=== PATIENT | male | born 1940 | race Asian ===

== ENCOUNTER 2019-06-06 17:07 | Inpatient (IN) | payer MEDICARE, MEDICAID ==
[2019-06-06 23:10] VITALS: BP 147/80
[2019-06-07] MEDS ORDERED: GLUCAGON HCl 1 MG KIT IM PRN ×3 (00:02→07:52)
[2019-06-07] MEDS ORDERED: Lactulose 10 Gm/15 mL 30mL UDC PO PRN (00:28)
[2019-06-07] MEDS ORDERED: Fleet Enema 135 mL RC PRN (00:34)
[2019-06-07] MEDS ORDERED: Hydrocodone/APAP 5mg/325mg Tab PO PRN (00:35)
[2019-06-07] MEDS ORDERED: Magnesium Hydroxide (MOM) 30 mL UDC PO PRN (00:37)
[2019-06-07] MEDS ORDERED: INSULIN LISPRO SLIDING SCALE 100 UNITS/ML UNIT SUBQ SCH ×2 (06:00→11:30)
--- NOTE | 2019-06-07 07:48 | History and Physical ---
History of Present Illness - HPI Chief Complaint: psychosis HPI: 79 y/o male transferred to [facility] from [facility] for acute psychosis. Patient has a previous medical history of dementia, Major depressive disorder, Hypertension, Hyperlipidemia, Diabetes Mellitus type 2, Anemia of chronic disease, and CVA. Patient was noted to have increased agitation and striking out and combative behavior at the SNF. Patient was transferred to [facility] ER for evaluation. While in the ER patient was evaluated by ER physician. Initial Labwork done in the ER revealed the following. WBC 9.9 H/H 10.9/32.5 Plat 177K Na 139 K 4.9 Bun/Cr 47/1.48 glu 237 UA Bacteria few Leuko neg Nitrite neg Patient was subsequently transferred to [facility] for further evaluation and treatment. Vital Signs: Last Vital Signs Temp 97.9 F 06/07/19 05:35 Pulse 85 06/07/19 05:35 Resp 20 06/07/19 05:35 BP 146/70 06/07/19 05:35 Pulse Ox 97 06/07/19 05:35 Past Medical History Cardiovascular: Report: HTN, Hyperlipidemia Pulmonary: Report: No Pertinent Hx [employer]: Report: CVA, Dementia GI: Report: No Pertinent Hx Psych: Report: Anxiety, Depression, Psychosis Musculoskeletal: Report: No Pertinent Hx Rheumatologic: Report: No pertinent Hx Infectious Disease: Report: No Pertinent Hx Renal/: Report: No Pertinent Hx Endocrine: Report: Diabetes Dermatology: Report: No Pertinent Hx - Past Surgical History Past Surgical History: No pertinent Hx Social History Smoke: No Alcohol: None Drugs: None [facility] - Allergies Allergies/Adverse Reactions: Allergies Allergy/AdvReac Type Severity Reaction Status Date / Time No Known Allergies Allergy Verified 06/06/19 23:09 Review of Systems - Review of Systems Constitutional: Report: No Significant Eyes: Report: No Significant ENT: Report: No Significant Respiratory: Report: No Significant Cardiovascular: Report: No Significant Gastrointestinal: Report: No Significant Genitourinary: Report: No Significant Musculoskeletal: Report: No Significant Skin: Report: No Significant Neurological: Report: No Significant Physical Exam - Physical Exam HEENT: Report: Ears Nose Throat within normal limits, Pharnyx within normal limits Neck: Report: Within normal limits Cardiovascular Systems: Report: +s1/s2 noted, Regular, Rate and Rhythm Respiratory: Report: Breath Sounds are within normal limits Abdomen: Report: Non-tender to palpation Back: Report: Inspection of back is within normal limits. Extremities: Report: Non-tender to palpation. Skin: Report: Color of skin is within normal limits Neuro/Psych: Report: No sensory deficit - Assessment Assessment: Psychosis dementia Major depressive disorder Hypertension Hyperlipidemia Diabetes Mellitus type 2 Anemia of chronic disease CVA - Plan Plan: admit to [facility] for further evaluation and treatment continue home meds.
[2019-06-07] MEDS ORDERED: Atorvastatin Calcium 10 MG TAB PO SCH (09:00)
[2019-06-07] MEDS: Multivitamin Tab PO SCH (09:32)
[2019-06-07] MEDS: Aspirin 81mg Chewable Tab PO SCH (09:32)
[2019-06-07] MEDS: INSULIN LISPRO SLIDING SCALE 100 UNITS/ML UNIT SUBQ SCH ×3 (12:41→20:10)
--- NOTE | 2019-06-07 22:52 | Psychiatric Evaluation ---
DATE OF SERVICE: 06/07/2019 PSYCHIATRIC INITIAL EVALUAITON AGE: 79. SEX: Male. PHYSICIAN: Dr. Gunter. CHIEF COMPLAINT: Agitation and confusion. HISTORY OF PRESENT ILLNESS: The patient is a 79-year-old male who lives in [facility]. The patient was transferred from [facility] because of increased confusion as well as increased aggressive behavior and agitation. The patient also has been combative, especially when staff trying to help with ADLs. Also, has not been able to follow any of staff's directions. On the unit, the patient also has not been able to follow directions and has been easily irritable and easily agitated. Language barrier also might adding to the problems. The patient has history of CVA and history of diabetes mellitus type 2 as well as hypertension and hyperlipidemia. PAST PSYCHIATRIC HISTORY: The patient has history of what seems to be dementia. PAST MEDICAL HISTORY: As mentioned above. SOCIAL HISTORY: The patient lives in [facility]. No known alcohol or drug use. ALLERGIES: No known allergies. MENTAL STATUS EXAMINATION: The patient appears older than stated age. Covering her face during my interview and when I tried to talk him, the patient kept trying to cover his face and he was becoming more angry and irritable easily. The patient because of language and no staff available to translate, I was not able to get answers to questions regarding hallucinations or delusions, but from the chart the patient seems to be hallucinating and seems to be paranoid. Also, no reports of suicide or homicide. The patient is alert, but unable to assess orientation or memory or concentration or intelligence at this time because of language barrier and also because of the patient's paranoia. ASSESSMENT: PRIMARY DIAGNOSIS: Unspecified psychosis. SECONDARY DIAGNOSIS: Dementia, moderate to severe, with psychotic features. TREATMENT PLAN: We will continue to monitor the patient's behavior and condition closely. We will also try to get more information regarding the patient's condition and medications. Also, we will work on his poor impulse control and also on his monitor blood levels of Tegretol and Depakote. ESTIMATED LENGTH OF STAY: 5-7 days. PATIENT'S STRENGTHS AND WEAKNESSES: The patient has support from [facility] and they would like to get the patient back. Weaknesses is his poor impulse control. AFTER DISCHARGE PLAN: Outpatient treatment and followup will continue as an outpatient in [facility]. [facility]# [id number]
[2019-06-08] MEDS: INSULIN LISPRO SLIDING SCALE 100 UNITS/ML UNIT SUBQ SCH ×4 (06:41→22:06)
--- NOTE | 2019-06-08 07:10 | Progress Notes ---
DATE: 06/08/2019 SUBJECTIVE: Chart reviewed and tried to interview the patient and was helped from staff with translation. Also reviewed records and labs. The patient is still preoccupied. The patient also is still aggressive at times, especially when male staff tries to help him with his ADLs. The patient also is restless at night and he is still in angry mood. The patient also is having difficulty with his mood and he is easily irritable and easily agitated. Otherwise, the patient is compliant with taking his medications with no side effects of medications. ASSESSMENT: The patient is still agitated and is still in irritable mood. TREATMENT PLAN: We will continue to monitor his behavior and his condition closely. Also, we will increase Seroquel to 150 mg at bedtime and 25 mg in the morning. Also, continue to work on his irritability and his poor impulse control and continue to follow up. [facility]# [id number]
--- NOTE | 2019-06-08 08:17 | General Progress Note ---
Subjective - Review of Systems Service Date: 06/08/19 Subjective: Awake,alert, afebrile VS T 98.6 P 101 R 19 BP 160/75 Objective - Physical Exam Vitals and I&O: Vital Signs Temp 98.6 F 06/08/19 06:53 Pulse 101 06/08/19 06:53 Resp 19 06/08/19 06:53 BP 160/75 06/08/19 06:53 Pulse Ox 98 06/08/19 06:53 Intake & Output 06/07/19 06/08/19 06/08/19 18:59 06:59 18:59 Intake Total 240 Balance 240 Intake: Oral 240 Other: # Voids 2 # Bowel Movements 0 Active Medications: Current Medications Acetaminophen/Hydrocodone Bitart ([place] 5mg/325mg) 1 tab PO Q6H PRN PRN Reason: moderate pain (Scale 4-7) Stop: 08/06/19 00:34 Amlodipine Besylate (Norvasc) 10 mg PO DAILY [facility] Stop: 08/06/19 08:59 Last Admin: 06/07/19 09:32 Dose: 10 mg Aspirin (Aspirin Chewable) 81 mg PO DAILY [facility] Stop: 08/06/19 08:59 Last Admin: 06/07/19 09:32 Dose: 81 mg Atorvastatin Calcium (Lipitor) 40 mg PO DAILY [facility]; Protocol Stop: 08/06/19 08:59 Bisacodyl (Dulcolax 5 Mg Ec Tab) 5 mg PO PRN PRN PRN Reason: constipation Stop: 08/06/19 00:17 Calcium Carbonate (Tums) 500 mg PO TID [facility] Stop: 08/06/19 08:59 Last Admin: 06/07/19 22:15 Dose: 500 mg Dextrose (Glutose 40%) 18.75 gm PO PRN PRN PRN Reason: BS Below 70 if tolerate po Stop: 08/06/19 07:51 Docusate Sodium (Colace) 250 mg PO DAILY [facility] Stop: 08/06/19 08:59 Last Admin: 06/07/19 09:31 Dose: 250 mg Glucagon (Glucagen) 1 mg IM PRN PRN PRN Reason: BS Below 70 if not tolerate po Stop: 08/06/19 07:51 Insulin Human Lispro (Humalog Insulin Sliding Scale) 0 units SUBQ ACHS [facility]; Protocol Stop: 08/06/19 11:29 Last Admin: 06/08/19 06:41 Dose: Not Given Lactulose (Cephulac) 10 gm PO BID PRN PRN Reason: constipation Stop: 08/06/19 08:59 Lorazepam (Ativan) 0.5 mg PO Q4HR PRN; Protocol PRN Reason: Anxiety Stop: 07/06/19 23:10 Last Admin: 06/08/19 01:21 Dose: 0.5 mg Magnesium Hydroxide (Milk Of Magnesia) 30 ml PO HS PRN PRN Reason: Constipation Stop: 08/06/19 00:36 Multivitamins/Vitamin C (Theragran) 1 tab PO DAILY [facility] Stop: 08/06/19 08:59 Last Admin: 06/07/19 09:32 Dose: 1 tab Psyllium Hydrophilic Mucilloid (Metamucil) 1 pkt PO DAILY [facility] Stop: 08/06/19 08:59 Last Admin: 06/07/19 09:32 Dose: 1 pkt Quetiapine Fumarate (Seroquel) 150 mg PO HS [facility]; Protocol Stop: 08/07/19 20:59 Quetiapine Fumarate (Seroquel) 25 mg PO DAILY [facility]; Protocol Stop: 08/07/19 08:59 Sodium Phosphate (Fleet Enema) 135 ml RC PRN PRN PRN Reason: Constipation Stop: 08/06/19 00:33 Venlafaxine HCl (Effexor Xr) 75 mg PO DAILY [facility]; Protocol Stop: 08/06/19 08:59 Last Admin: 06/07/19 09:33 Dose: 75 mg Zolpidem Tartrate (Ambien) 5 mg PO HS PRN PRN Reason: Insomnia Stop: 08/06/19 01:05 Last Admin: 06/07/19 22:17 Dose: 5 mg General: Alert, No acute distress HEENT: Atraumatic, PERRLA, EOMI Neck: Supple, JVD Cardiovascular: Regular rate Lungs: Clear to auscultation Abdomen: Bowel sounds Extremities: no Clubbing, no Cyanosis, no Edema Neurological: Normal gait Skin: no Rash Assessment/Plan - Assessment Assessment: Psychosis dementia Major depressive disorder Hypertension elevated Hyperlipidemia Diabetes Mellitus type 2 Anemia of chronic disease CVA - Plan Plan: add clonidine 0.1mg PO TID PRN SBP above 160 will continue current treatment.
[2019-06-08] MEDS: Multivitamin Tab PO SCH (09:09)
[2019-06-08] MEDS: Aspirin 81mg Chewable Tab PO SCH (09:10)
[2019-06-08] MEDS ORDERED: Haloperidol Lactate 5 mg/mL 1mL Vial IM ONE (12:53)
[2019-06-08] MEDS ORDERED: Haloperidol Lactate 5 mg/mL 1mL Vial ONE (12:58)
[2019-06-09] MEDS: INSULIN LISPRO SLIDING SCALE 100 UNITS/ML UNIT SUBQ SCH ×4 (06:46→22:00)
--- NOTE | 2019-06-09 07:16 | Progress Notes ---
DATE: 06/09/2019 SUBJECTIVE: Chart was reviewed and the patient interviewed. Also discussed the patient's condition with the staff and reviewed records and labs. The patient is still extremely agitated and in angry and in irritable mood. The patient also is restless and still has difficulty with his mood and is aggressive with the staff, especially while helping him with his ADLs. The patient also still has difficulty expressing himself and his feelings basically because of language barrier, but at the same time, he is unable to follow any of staff directions. The patient started on Seroquel 25 mg in the morning and 150 mg at bedtime, but seems that has not been helping to control his impulse. ASSESSMENT: The patient is still agitated and in irritable mood and is still confused. TREATMENT PLAN: Continue to monitor behavior and condition closely. Also, continue working on his irritability. Also, we will decrease Effexor to 50 mg every day and we will increase Seroquel to 25 mg twice a day and 150 mg at bedtime and we will continue to follow up. JOB# [id number]
--- NOTE | 2019-06-09 07:39 | General Progress Note ---
Subjective - Review of Systems Service Date: 06/09/19 Subjective: Awake,alert, afebrile. Less agitated this morning VS T 97.3 P 96 R 20 BP 148/81 Objective - Physical Exam Vitals and I&O: Vital Signs Temp 97.3 F 06/09/19 05:39 Pulse 96 06/09/19 05:39 Resp 20 06/09/19 05:39 BP 148/81 06/09/19 05:39 Pulse Ox 97 06/09/19 05:39 Intake & Output 06/08/19 06/09/19 06/09/19 18:59 06:59 18:59 Intake Total 600 240 Balance 600 240 Intake: Oral 600 240 Other: # Voids 3 2 # Bowel Movements 0 1 Active Medications: Current Medications Acetaminophen/Hydrocodone Bitart ([place] 5mg/325mg) 1 tab PO Q6H PRN PRN Reason: moderate pain (Scale 4-7) Stop: 08/06/19 00:34 Amlodipine Besylate (Norvasc) 10 mg PO DAILY [facility] Stop: 08/06/19 08:59 Last Admin: 06/08/19 09:10 Dose: 10 mg Aspirin (Aspirin Chewable) 81 mg PO DAILY [facility] Stop: 08/06/19 08:59 Last Admin: 06/08/19 09:10 Dose: 81 mg Atorvastatin Calcium (Lipitor) 40 mg PO DAILY [facility]; Protocol Stop: 08/06/19 08:59 Last Admin: 06/08/19 09:09 Dose: 40 mg Bisacodyl (Dulcolax 5 Mg Ec Tab) 5 mg PO PRN PRN PRN Reason: constipation Stop: 08/06/19 00:17 Calcium Carbonate (Tums) 500 mg PO TID [facility] Stop: 08/06/19 08:59 Last Admin: 06/08/19 22:08 Dose: 500 mg Dextrose (Glutose 40%) 18.75 gm PO PRN PRN PRN Reason: BS Below 70 if tolerate po Stop: 08/06/19 07:51 Docusate Sodium (Colace) 250 mg PO DAILY [facility] Stop: 08/06/19 08:59 Last Admin: 06/08/19 09:09 Dose: 250 mg Glucagon (Glucagen) 1 mg IM PRN PRN PRN Reason: BS Below 70 if not tolerate po Stop: 08/06/19 07:51 Insulin Human Lispro (Humalog Insulin Sliding Scale) 0 units SUBQ ACHS [facility]; Protocol Stop: 08/06/19 11:29 Last Admin: 06/09/19 06:46 Dose: 2 units Lactulose (Cephulac) 10 gm PO BID PRN PRN Reason: constipation Stop: 08/06/19 08:59 Lorazepam (Ativan) 0.5 mg PO Q4HR PRN; Protocol PRN Reason: Anxiety Stop: 07/06/19 23:10 Last Admin: 06/08/19 01:21 Dose: 0.5 mg Magnesium Hydroxide (Milk Of Magnesia) 30 ml PO HS PRN PRN Reason: Constipation Stop: 08/06/19 00:36 Multivitamins/Vitamin C (Theragran) 1 tab PO DAILY [facility] Stop: 08/06/19 08:59 Last Admin: 06/08/19 09:09 Dose: 1 tab Psyllium Hydrophilic Mucilloid (Metamucil) 1 pkt PO DAILY [facility] Stop: 08/06/19 08:59 Last Admin: 06/08/19 09:08 Dose: 1 pkt Quetiapine Fumarate 100 mg/ (Quetiapine Fumarate 50 mg) 150 mg PO HS [facility] Stop: 08/07/19 20:59 Last Admin: 06/08/19 22:08 Dose: 150 mg Quetiapine Fumarate (Seroquel) 25 mg PO BID [facility]; Protocol Stop: 08/08/19 08:59 Sodium Phosphate (Fleet Enema) 135 ml RC PRN PRN PRN Reason: Constipation Stop: 08/06/19 00:33 Venlafaxine HCl (Effexor Xr) 50 mg PO DAILY [facility]; Protocol Stop: 08/08/19 08:59 Zolpidem Tartrate (Ambien) 5 mg PO HS PRN PRN Reason: Insomnia Stop: 08/06/19 01:05 Last Admin: 06/07/19 22:17 Dose: 5 mg General: Alert, No acute distress HEENT: Atraumatic, PERRLA, EOMI Neck: Supple, JVD Cardiovascular: Regular rate Lungs: Clear to auscultation Abdomen: Bowel sounds Extremities: no Clubbing, no Cyanosis, no Edema Neurological: Normal gait Skin: no Rash Assessment/Plan - Assessment Assessment: Psychosis dementia Major depressive disorder Hypertension elevated Hyperlipidemia Diabetes Mellitus type 2 Anemia of chronic disease CVA - Plan Plan: add clonidine 0.1mg PO TID PRN SBP above 160 will continue current treatment.
[2019-06-09] MEDS: Aspirin 81mg Chewable Tab PO SCH (08:53)
[2019-06-09] MEDS: Multivitamin Tab PO SCH (08:53)
[2019-06-10] MEDS: INSULIN LISPRO SLIDING SCALE 100 UNITS/ML UNIT SUBQ SCH ×4 (07:01→20:58)
--- NOTE | 2019-06-10 07:30 | General Progress Note ---
Subjective - Review of Systems Service Date: 06/10/19 Subjective: Awake,alert, afebrile. Less agitated this morning VS T 98.3 P 103 R 20 BP 105/58 Objective - Physical Exam Vitals and I&O: Vital Signs Temp 98.3 F 06/10/19 06:57 Pulse 103 06/10/19 06:57 Resp 20 06/10/19 06:57 BP 105/58 06/10/19 06:57 Pulse Ox 96 06/10/19 06:57 Intake & Output 06/09/19 06/10/19 06/10/19 18:59 06:59 18:59 Intake Total 1200 240 Balance 1200 240 Intake: Oral 1200 240 Other: # Voids 2 # Bowel Movements 1 0 Active Medications: Current Medications Acetaminophen/Hydrocodone Bitart ([place] 5mg/325mg) 1 tab PO Q6H PRN PRN Reason: moderate pain (Scale 4-7) Stop: 08/06/19 00:34 Amlodipine Besylate (Norvasc) 10 mg PO DAILY [facility] Stop: 08/06/19 08:59 Last Admin: 06/09/19 08:54 Dose: 10 mg Aspirin (Aspirin Chewable) 81 mg PO DAILY [facility] Stop: 08/06/19 08:59 Last Admin: 06/09/19 08:53 Dose: 81 mg Atorvastatin Calcium (Lipitor) 40 mg PO DAILY [facility]; Protocol Stop: 08/06/19 08:59 Last Admin: 06/09/19 08:54 Dose: 40 mg Bisacodyl (Dulcolax 5 Mg Ec Tab) 5 mg PO PRN PRN PRN Reason: constipation Stop: 08/06/19 00:17 Calcium Carbonate (Tums) 500 mg PO TID [facility] Stop: 08/06/19 08:59 Last Admin: 06/09/19 22:00 Dose: 500 mg Dextrose (Glutose 40%) 18.75 gm PO PRN PRN PRN Reason: BS Below 70 if tolerate po Stop: 08/06/19 07:51 Docusate Sodium (Colace) 250 mg PO DAILY [facility] Stop: 08/06/19 08:59 Last Admin: 06/09/19 08:55 Dose: 250 mg Glucagon (Glucagen) 1 mg IM PRN PRN PRN Reason: BS Below 70 if not tolerate po Stop: 08/06/19 07:51 Insulin Human Lispro (Humalog Insulin Sliding Scale) 0 units SUBQ ACHS [facility]; Protocol Stop: 08/06/19 11:29 Last Admin: 06/10/19 07:01 Dose: 4 units Lactulose (Cephulac) 10 gm PO BID PRN PRN Reason: constipation Stop: 08/06/19 08:59 Lorazepam (Ativan) 0.5 mg PO Q4HR PRN; Protocol PRN Reason: Anxiety Stop: 07/06/19 23:10 Last Admin: 06/09/19 16:18 Dose: 0.5 mg Magnesium Hydroxide (Milk Of Magnesia) 30 ml PO HS PRN PRN Reason: Constipation Stop: 08/06/19 00:36 Multivitamins/Vitamin C (Theragran) 1 tab PO DAILY [facility] Stop: 08/06/19 08:59 Last Admin: 06/09/19 08:53 Dose: 1 tab Psyllium Hydrophilic Mucilloid (Metamucil) 1 pkt PO DAILY [facility] Stop: 08/06/19 08:59 Last Admin: 06/09/19 08:53 Dose: 1 pkt Quetiapine Fumarate 100 mg/ (Quetiapine Fumarate 50 mg) 150 mg PO HS [facility] Stop: 08/07/19 20:59 Last Admin: 06/09/19 22:00 Dose: 150 mg Quetiapine Fumarate (Seroquel) 25 mg PO BID [facility]; Protocol Stop: 08/08/19 08:59 Last Admin: 06/09/19 16:18 Dose: 25 mg Sodium Phosphate (Fleet Enema) 135 ml RC PRN PRN PRN Reason: Constipation Stop: 08/06/19 00:33 Venlafaxine HCl (Effexor Xr) 75 mg PO DAILY [facility]; Protocol Stop: 08/09/19 08:59 Zolpidem Tartrate (Ambien) 5 mg PO HS PRN PRN Reason: Insomnia Stop: 08/06/19 01:05 Last Admin: 06/07/19 22:17 Dose: 5 mg General: Alert, No acute distress HEENT: Atraumatic, PERRLA, EOMI Neck: Supple, JVD Cardiovascular: Regular rate Lungs: Clear to auscultation Abdomen: Bowel sounds Extremities: no Clubbing, no Cyanosis, no Edema Neurological: Normal gait Skin: no Rash Assessment/Plan - Assessment Assessment: Psychosis dementia Major depressive disorder Hypertension improved Hyperlipidemia Diabetes Mellitus type 2 Anemia of chronic disease CVA - Plan Plan: add clonidine 0.1mg PO TID PRN SBP above 160 will continue current treatment. Nutritional Asmnt/Malnutr-PDOC - Dietary Evaluation Malnutrition Findings (Please click <Entered> for more info): Nutritional Asmnt/Malnutrition Start: 06/09/19 14: 45 Text: Status: Active Freq: Protocol: Document 06/09/19 14:45 BRIA (Rec: 06/09/19 14:51 [email or web address] [email or web address]) Nutritional Asmnt/Malnutrition Patient General Information Nutritional Screening Moderate Risk Diagnosis Psychosis Pertinent Medical Hx/Surgical Hx Dementia, Major Depressive Disorder, HTN, Hyperlipidemia, DMT2, Anemia of Chronic Disease, CVA Subjective Information Pt is a 79-year-old male admitted on 06/06 d/t acute psychosis. Pt ate (06/08) 75% breakfast, 25% lunch, 0% dinner. Pt only speaks Cantonese and translation phones are currently unavailable, have been ordered . Nurse Marcelo stated pt does have poor PO intake, food and beverages. Provided a Glucerna at lunch time, pt drank a little of it. Breezy REYES stated pt slept through breakfast as he was given a shot yesterday and he ate about 30% of his lunch today. When I visited pt in late afternoon I went in with the nurse to offer a snack and the pt was combative, kicking and punching, threw pudding on the ground. Will continue to monitor pt PO intake. Adding Glucerna TID to Diet Rx to offer additional kcals and protein. Pt is on INS-SS, pt has noted refusal of Insulin regimen 06/08 x3. Anthropometrics HT: 52 WT: 122 LB (55.45 kg) BMI: 22.31 (Normal) GI/ Skin Integrity GI: WNL, Flat, Non-tender BM: 06/09 x1 I/O: 840/Not Noted Skin: WNL, Intact Mau: 18 Diet Order: CCHO, REGINA, Pureed Estimated Energy Needs: ( Geriatric, CBW) 1318-5522 kcals (25-30 kcals/ kg) 55-65g Pro (1.0-1.2 g/kg) 5724-3543 ml (25-30 ml/kg) Current Diet Order/ [facility], REGINA, Pureed Pertinent Medications Lipitor, Dulcolax (PRN), Tums, Glutose 40% (PRN), Glucagen ( PRN), INS-SS, Cephulac, Colace , MOM (PRN), Theragran, Metamucil, Fleet Enema (PRN) Pertinent Labs 06/08: A1c 8.8, Hgb/Hct 10.9/32 .5, Glucose 237, BUN/Cr 47/1. 48, TAGs 201, Urine Protein 2+ , Urine Glucose 2+ POC Glucose (06/07-06/09): 174, 307, 78, 200, 186 Nutritional Hx/Data Height 1.57 m Height (Calculated Centimeters) 157.5 Current Weight (lbs) 55.338 kg Weight (Calculated Kilograms) 55.3 Weight (Calculated Grams) 91083.3 [place] Body Weight 118 LB (53.64 kg) % [place] Body Weight 103 Body Mass Index (BMI) 22.3 Weight Status Approriate GI Symptoms Last BM 06/09 x1 Skin Integrity/Comment: Skin: WNL, Intact Mau: 18 Current %PO Poor (25-49%) Estimated Nutritional Goals BEE in Kcals: Using Current wt Calories/Kcals/Kg 25-30 Kcals Calculated 3272-9092 Protein: Using Current wt Protein g/k.0-1.2 Protein Calculated 55-65 Fluid: ml 4010-1809 ml (25-30 ml/kg) Nutritional Problem 2. Problem Problem Impaired nutrient utilization Etiology /t endocrine/renal dysfunction Signs/Symptoms: aeb Hx DMT2, labs (06/08): A1c 8.8, Glucose 237, BUN/Cr 47/1. 48, Urine Protein 2+, Urine Glucose 2+ 1. Problem Problem Poor PO intake Etiology r/t possible psychosis/ language barrier/poor appetite Signs/Symptoms: aeb meal/nutrition activity record. Malnutrition Related to Morbid Obesity Malnutrition related to morbid obesity No Intervention/Recommendation Comments 1. Continue CCHO, REGINA, Pureed diet as tolerated. 2. Continue antihyperglycemic medications for glucose control per MD order. 3. Add Glucerna TID (completed ). Expected Outcomes/Goals Expected Outcomes/Goals 1. PO intake to meet 75% of estimated nutritional needs. 2. Monitor PO intake, wt, nutrition related labs, and skin integrity. 3. F/U as moderate risk in 3-5 days, 06/12-06/14
[2019-06-10] MEDS: Aspirin 81mg Chewable Tab PO SCH (09:21)
[2019-06-10] MEDS: Multivitamin Tab PO SCH (09:22)
--- NOTE | 2019-06-11 01:57 | Progress Notes ---
DATE: Covering for Dr. Gunter. Case was discussed with staff of the patient, reviewed records, labs, medication. This is a 79-year-old male who was admitted on 06/06/2019 because of confusion and agitation. He came from [facility]. The patient was referred because of increasing confusion and increasing aggressive behavior, agitation, combative, especially when staff trying to help with ADLs, unable to follow staff direction, unable to make safe plan for self-care. The patient has a history of CVA, diabetes mellitus type 2, as well as hypertension, hyperlipidemia. The patient so far continues to be confused, unpredictable, impulsive, needing redirection, combative. No side effects with the medication, no sedation, no nausea, no extrapyramidal symptoms. Effexor 75 mg daily, Seroquel 25 mg twice a day and 150 at bedtime and no side effects with the medication, no sedation, no nausea, no extrapyramidal symptoms. We will continue outpatient group therapy, milieu therapy, and adjust medications as needed. JOB# [id number]
[2019-06-11] MEDS: INSULIN LISPRO SLIDING SCALE 100 UNITS/ML UNIT SUBQ SCH ×4 (06:39→21:26)
--- NOTE | 2019-06-11 08:13 | General Progress Note ---
Subjective - Review of Systems Service Date: 06/11/19 Subjective: Awake,alert, afebrile. Less agitated this morning VS T 97.7 P 90 R 19 BP 110/58 Objective - Physical Exam Vitals and I&O: Vital Signs Temp 97.7 F 06/11/19 06:25 Pulse 90 06/11/19 06:25 Resp 19 06/11/19 06:25 BP 110/58 06/11/19 06:25 Pulse Ox 92 06/11/19 06:25 Intake & Output 06/10/19 06/11/19 06/11/19 18:59 06:59 18:59 Intake Total 1000 180 Output Total 1 Balance 1000 179 Intake: Oral 1000 180 Output: Urine/Stool Mix 1 Other: # Voids 4 1 # Bowel Movements 1 0 Active Medications: Current Medications Acetaminophen/Hydrocodone Bitart ([place] 5mg/325mg) 1 tab PO Q6H PRN PRN Reason: moderate pain (Scale 4-7) Stop: 08/06/19 00:34 Amlodipine Besylate (Norvasc) 10 mg PO DAILY [facility] Stop: 08/06/19 08:59 Last Admin: 06/10/19 09:22 Dose: 10 mg Aspirin (Aspirin Chewable) 81 mg PO DAILY [facility] Stop: 08/06/19 08:59 Last Admin: 06/10/19 09:21 Dose: 81 mg Atorvastatin Calcium (Lipitor) 40 mg PO DAILY [facility]; Protocol Stop: 08/06/19 08:59 Last Admin: 06/10/19 09:21 Dose: 40 mg Bisacodyl (Dulcolax 5 Mg Ec Tab) 5 mg PO PRN PRN PRN Reason: constipation Stop: 08/06/19 00:17 Calcium Carbonate (Tums) 500 mg PO TID [facility] Stop: 08/06/19 08:59 Last Admin: 06/10/19 20:58 Dose: 500 mg Dextrose (Glutose 40%) 18.75 gm PO PRN PRN PRN Reason: BS Below 70 if tolerate po Stop: 08/06/19 07:51 Docusate Sodium (Colace) 250 mg PO DAILY [facility] Stop: 08/06/19 08:59 Last Admin: 06/10/19 09:21 Dose: 250 mg Glucagon (Glucagen) 1 mg IM PRN PRN PRN Reason: BS Below 70 if not tolerate po Stop: 08/06/19 07:51 Insulin Human Lispro (Humalog Insulin Sliding Scale) 0 units SUBQ ACHS [facility]; Protocol Stop: 08/06/19 11:29 Last Admin: 06/11/19 06:39 Dose: 4 units Lactulose (Cephulac) 10 gm PO BID PRN PRN Reason: constipation Stop: 08/06/19 08:59 Lorazepam (Ativan) 0.5 mg PO Q4HR PRN; Protocol PRN Reason: Anxiety Stop: 07/06/19 23:10 Last Admin: 06/09/19 16:18 Dose: 0.5 mg Magnesium Hydroxide (Milk Of Magnesia) 30 ml PO HS PRN PRN Reason: Constipation Stop: 08/06/19 00:36 Multivitamins/Vitamin C (Theragran) 1 tab PO DAILY [facility] Stop: 08/06/19 08:59 Last Admin: 06/10/19 09:22 Dose: 1 tab Psyllium Hydrophilic Mucilloid (Metamucil) 1 pkt PO DAILY [facility] Stop: 08/06/19 08:59 Last Admin: 06/10/19 09:21 Dose: 1 pkt Quetiapine Fumarate 100 mg/ (Quetiapine Fumarate 50 mg) 150 mg PO HS [facility] Stop: 08/07/19 20:59 Last Admin: 06/10/19 20:58 Dose: 150 mg Quetiapine Fumarate (Seroquel) 25 mg PO BID [facility]; Protocol Stop: 08/08/19 08:59 Last Admin: 06/10/19 16:41 Dose: 25 mg Sodium Phosphate (Fleet Enema) 135 ml RC PRN PRN PRN Reason: Constipation Stop: 08/06/19 00:33 Venlafaxine HCl (Effexor Xr) 75 mg PO DAILY [facility]; Protocol Stop: 08/09/19 08:59 Last Admin: 06/10/19 09:22 Dose: 75 mg Zolpidem Tartrate (Ambien) 5 mg PO HS PRN PRN Reason: Insomnia Stop: 08/06/19 01:05 Last Admin: 06/07/19 22:17 Dose: 5 mg General: Alert, No acute distress HEENT: Atraumatic, PERRLA, EOMI Neck: Supple, JVD Cardiovascular: Regular rate Lungs: Clear to auscultation Abdomen: Bowel sounds Extremities: no Clubbing, no Cyanosis, no Edema Neurological: Normal gait Skin: no Rash Assessment/Plan - Assessment Assessment: Psychosis dementia Major depressive disorder Hypertension controlled Hyperlipidemia Diabetes Mellitus type 2 Anemia of chronic disease CVA - Plan Plan: add clonidine 0.1mg PO TID PRN SBP above 160 will continue current treatment. Nutritional Asmnt/Malnutr-PDOC - Dietary Evaluation Malnutrition Findings (Please click <Entered> for more info): Nutritional Asmnt/Malnutrition Start: 06/09/19 14: 45 Text: Status: Active Freq: Protocol: Document 06/09/19 14:45 BRIA (Rec: 06/09/19 14:51 [email or web address]) Nutritional Asmnt/Malnutrition Patient General Information Nutritional Screening Moderate Risk Diagnosis Psychosis Pertinent Medical Hx/Surgical Hx Dementia, Major Depressive Disorder, HTN, Hyperlipidemia, DMT2, Anemia of Chronic Disease, CVA Subjective Information Pt is a 79-year-old male admitted on 06/06 d/t acute psychosis. Pt ate (06/08) 75% breakfast, 25% lunch, 0% dinner. Pt only speaks Cantonese and translation phones are currently unavailable, have been ordered . Nurse Marcelo stated pt does have poor PO intake, food and beverages. Provided a Glucerna at lunch time, pt drank a little of it. Breezy REYES stated pt slept through breakfast as he was given a shot yesterday and he ate about 30% of his lunch today. When I visited pt in late afternoon I went in with the nurse to offer a snack and the pt was combative, kicking and punching, threw pudding on the ground. Will continue to monitor pt PO intake. Adding Glucerna TID to Diet Rx to offer additional kcals and protein. Pt is on INS-SS, pt has noted refusal of Insulin regimen 06/08 x3. Anthropometrics HT: 52 WT: 122 LB (55.45 kg) BMI: 22.31 (Normal) GI/ Skin Integrity GI: WNL, Flat, Non-tender BM: 06/09 x1 I/O: 840/Not Noted Skin: WNL, Intact Mau: 18 Diet Order: CCHO, REGINA, Pureed Estimated Energy Needs: ( Geriatric, CBW) 4138-8984 kcals (25-30 kcals/ kg) 55-65g Pro (1.0-1.2 g/kg) 1228-1639 ml (25-30 ml/kg) Current Diet Order/ Nutrition Support CCHO, REGINA, Pureed Pertinent Medications Lipitor, Dulcolax (PRN), Tums, Glutose 40% (PRN), Glucagen ( PRN), INS-SS, Cephulac, Colace , MOM (PRN), Theragran, Metamucil, Fleet Enema (PRN) Pertinent Labs 06/08: A1c 8.8, Hgb/Hct 10.9/32 .5, Glucose 237, BUN/Cr 47/1. 48, TAGs 201, Urine Protein 2+ , Urine Glucose 2+ POC Glucose (06/07-06/09): 174, 307, 78, 200, 186 Nutritional Hx/Data Height 1.57 m Height (Calculated Centimeters) 157.5 Current Weight (lbs) 55.338 kg Weight (Calculated Kilograms) 55.3 Weight (Calculated Grams) 29671.3 [place] Body Weight 118 LB (53.64 kg) % [place] Body Weight 103 Body Mass Index (BMI) 22.3 Weight Status Approriate GI Symptoms Last BM 06/09 x1 Skin Integrity/Comment: Skin: WNL, Intact Mau: 18 Current %PO Poor (25-49%) Estimated Nutritional Goals BEE in Kcals: Using Current wt Calories/Kcals/Kg 25-30 Kcals Calculated 6373-0111 Protein: Using Current wt Protein g/k.0-1.2 Protein Calculated 55-65 Fluid: ml 3084-0749 ml (25-30 ml/kg) Nutritional Problem 2. Problem Problem Impaired nutrient utilization Etiology /t endocrine/renal dysfunction Signs/Symptoms: aeb Hx DMT2, labs (06/08): A1c 8.8, Glucose 237, BUN/Cr 47/1. 48, Urine Protein 2+, Urine Glucose 2+ 1. Problem Problem Poor PO intake Etiology r/t possible psychosis/ language barrier/poor appetite Signs/Symptoms: aeb meal/nutrition activity record. Malnutrition Related to Morbid Obesity Malnutrition related to morbid obesity No Intervention/Recommendation Comments 1. Continue CCHO, REGINA, Pureed diet as tolerated. 2. Continue antihyperglycemic medications for glucose control per MD order. 3. Add Glucerna TID (completed ). Expected Outcomes/Goals Expected Outcomes/Goals 1. PO intake to meet 75% of estimated nutritional needs. 2. Monitor PO intake, wt, nutrition related labs, and skin integrity. 3. F/U as moderate risk in 3-5 days, 06/12-06/14
[2019-06-11] MEDS: Aspirin 81mg Chewable Tab PO SCH (09:08)
[2019-06-11] MEDS: Multivitamin Tab PO SCH (09:08)
--- NOTE | 2019-06-11 17:05 | Progress Notes ---
DATE: 06/11/[address] Gunter. IDENTIFYING DATA: A 79-year-old male, living at [facility], brought in here for increased aggression, increased confusion and agitation. He has a history of dementia, diabetes and CVA, hyperlipidemia and hypertension. MEDICATIONS: Reconciliation reviewed: Aspirin, Lipitor, Tums, glucagon, Colace, lactulose, Ativan as needed, Seroquel 25 mg p.o. b.i.d. and 150 mg at nighttime. Today on [id number] evaluation, the patient mostly stares when attempted to have a conversation with him, disengaged in the unit and avoidant. Avoiding, disorganized, agitated, combative. ASSESSMENT AND PLAN: Schizophrenia. We will continue with the current adjustment medications, which include Seroquel, Effexor. JOB# [id number]
[2019-06-12] MEDS: INSULIN LISPRO SLIDING SCALE 100 UNITS/ML UNIT SUBQ SCH ×4 (06:30→20:39)
--- NOTE | 2019-06-12 07:23 | General Progress Note ---
Subjective - Review of Systems Service Date: 06/12/19 Subjective: Awake,alert, afebrile. Less agitated this morning. Blood sugars elevated last night. 400's VS T 97.8 P 94 R 20 BP 139/69 Objective - Physical Exam Vitals and I&O: Vital Signs Temp 97.8 F 06/12/19 05:46 Pulse 94 06/12/19 05:46 Resp 20 06/12/19 05:46 BP 139/69 06/12/19 05:46 Pulse Ox 95 06/12/19 05:46 Intake & Output 06/11/19 06/12/19 06/12/19 18:59 06:59 18:59 Intake Total 240 Balance 240 Intake: Oral 240 Other: # Voids 2 Active Medications: Current Medications Acetaminophen/Hydrocodone Bitart ([place] 5mg/325mg) 1 tab PO Q6H PRN PRN Reason: moderate pain (Scale 4-7) Stop: 08/06/19 00:34 Amlodipine Besylate (Norvasc) 10 mg PO DAILY [facility] Stop: 08/06/19 08:59 Last Admin: 06/11/19 09:07 Dose: Not Given Aspirin (Aspirin Chewable) 81 mg PO DAILY [facility] Stop: 08/06/19 08:59 Last Admin: 06/11/19 09:08 Dose: 81 mg Atorvastatin Calcium (Lipitor) 40 mg PO DAILY [facility]; Protocol Stop: 08/06/19 08:59 Last Admin: 06/11/19 09:09 Dose: 40 mg Bisacodyl (Dulcolax 5 Mg Ec Tab) 5 mg PO PRN PRN PRN Reason: constipation Stop: 08/06/19 00:17 Calcium Carbonate (Tums) 500 mg PO TID [facility] Stop: 08/06/19 08:59 Last Admin: 06/11/19 21:00 Dose: 500 mg Dextrose (Glutose 40%) 18.75 gm PO PRN PRN PRN Reason: BS Below 70 if tolerate po Stop: 08/06/19 07:51 Docusate Sodium (Colace) 250 mg PO DAILY [facility] Stop: 08/06/19 08:59 Last Admin: 06/11/19 09:08 Dose: 250 mg Glucagon (Glucagen) 1 mg IM PRN PRN PRN Reason: BS Below 70 if not tolerate po Stop: 08/06/19 07:51 Insulin Human Lispro (Humalog Insulin Sliding Scale) 0 units SUBQ ACHS [facility]; Protocol Stop: 08/06/19 11:29 Last Admin: 06/12/19 06:30 Dose: Not Given Lactulose (Cephulac) 10 gm PO BID PRN PRN Reason: constipation Stop: 08/06/19 08:59 Lorazepam (Ativan) 0.5 mg PO Q4HR PRN; Protocol PRN Reason: Anxiety Stop: 07/06/19 23:10 Last Admin: 06/09/19 16:18 Dose: 0.5 mg Magnesium Hydroxide (Milk Of Magnesia) 30 ml PO HS PRN PRN Reason: Constipation Stop: 08/06/19 00:36 Multivitamins/Vitamin C (Theragran) 1 tab PO DAILY [facility] Stop: 08/06/19 08:59 Last Admin: 06/11/19 09:08 Dose: 1 tab Psyllium Hydrophilic Mucilloid (Metamucil) 1 pkt PO DAILY [facility] Stop: 08/06/19 08:59 Last Admin: 06/11/19 09:08 Dose: 1 pkt Quetiapine Fumarate 100 mg/ (Quetiapine Fumarate 50 mg) 150 mg PO HS [facility] Stop: 08/07/19 20:59 Last Admin: 06/11/19 21:01 Dose: 150 mg Quetiapine Fumarate (Seroquel) 25 mg PO BID [facility]; Protocol Stop: 08/08/19 08:59 Last Admin: 06/11/19 16:37 Dose: 25 mg Sodium Phosphate (Fleet Enema) 135 ml RC PRN PRN PRN Reason: Constipation Stop: 08/06/19 00:33 Venlafaxine HCl (Effexor Xr) 75 mg PO DAILY [facility]; Protocol Stop: 08/09/19 08:59 Last Admin: 06/11/19 09:09 Dose: 75 mg Zolpidem Tartrate (Ambien) 5 mg PO HS PRN PRN Reason: Insomnia Stop: 08/06/19 01:05 Last Admin: 06/11/19 21:01 Dose: 5 mg General: Alert, No acute distress HEENT: Atraumatic, PERRLA, EOMI Neck: Supple, JVD Cardiovascular: Regular rate Lungs: Clear to auscultation Abdomen: Bowel sounds Extremities: no Clubbing, no Cyanosis, no Edema Neurological: Normal gait Skin: no Rash Assessment/Plan - Assessment Assessment: elevated blood sugars last night Psychosis dementia Major depressive disorder Hypertension controlled Hyperlipidemia Diabetes Mellitus type 2 Anemia of chronic disease CVA - Plan Plan: add clonidine 0.1mg PO TID PRN SBP above 160 labwork pending see orders continue accuchecks SSI Nutritional Asmnt/Malnutr-PDOC - Dietary Evaluation Malnutrition Findings (Please click <Entered> for more info): Nutritional Asmnt/Malnutrition Start: 06/09/19 14: 45 Text: Status: Active Freq: Protocol: Document 06/09/19 14:45 BRIA (Rec: 06/09/19 14:51 [email or web address]) Nutritional Asmnt/Malnutrition Patient General Information Nutritional Screening Moderate Risk Diagnosis Psychosis Pertinent Medical Hx/Surgical Hx Dementia, Major Depressive Disorder, HTN, Hyperlipidemia, DMT2, Anemia of Chronic Disease, CVA Subjective Information Pt is a 79-year-old male admitted on 06/06 d/t acute psychosis. Pt ate (06/08) 75% breakfast, 25% lunch, 0% dinner. Pt only speaks Cantonese and translation phones are currently unavailable, have been ordered . Nurse Marcelo stated pt does have poor PO intake, food and beverages. Provided a Glucerna at lunch time, pt drank a little of it. Breezy REYES stated pt slept through breakfast as he was given a shot yesterday and he ate about 30% of his lunch today. When I visited pt in late afternoon I went in with the nurse to offer a snack and the pt was combative, kicking and punching, threw pudding on the ground. Will continue to monitor pt PO intake. Adding Glucerna TID to Diet Rx to offer additional kcals and protein. Pt is on INS-SS, pt has noted refusal of Insulin regimen 06/08 x3. Anthropometrics HT: 52 WT: 122 LB (55.45 kg) BMI: 22.31 (Normal) GI/ Skin Integrity GI: WNL, Flat, Non-tender BM: 06/09 x1 I/O: 840/Not Noted Skin: WNL, Intact Mau: 18 Diet Order: CCHO, REGINA, Pureed Estimated Energy Needs: ( Geriatric, CBW) 6298-0077 kcals (25-30 kcals/ kg) 55-65g Pro (1.0-1.2 g/kg) 2760-9183 ml (25-30 ml/kg) Current Diet Order/ Nutrition Support CCHO, REGINA, Pureed Pertinent Medications Lipitor, Dulcolax (PRN), Tums, Glutose 40% (PRN), Glucagen ( PRN), INS-SS, Cephulac, Colace , MOM (PRN), Theragran, Metamucil, Fleet Enema (PRN) Pertinent Labs 06/08: A1c 8.8, Hgb/Hct 10.9/32 .5, Glucose 237, BUN/Cr 47/1. 48, TAGs 201, Urine Protein 2+ , Urine Glucose 2+ POC Glucose (06/07-06/09): 174, 307, 78, 200, 186 Nutritional Hx/Data Height 1.57 m Height (Calculated Centimeters) 157.5 Current Weight (lbs) 55.338 kg Weight (Calculated Kilograms) 55.3 Weight (Calculated Grams) 39490.3 [place] Body Weight 118 LB (53.64 kg) % [place] Body Weight 103 Body Mass Index (BMI) 22.3 Weight Status Approriate GI Symptoms Last BM 06/09 x1 Skin Integrity/Comment: Skin: WNL, Intact Mau: 18 Current %PO Poor (25-49%) Estimated Nutritional Goals BEE in Kcals: Using Current wt Calories/Kcals/Kg 25-30 Kcals Calculated 0698-4969 Protein: Using Current wt Protein g/k.0-1.2 Protein Calculated 55-65 Fluid: ml 2351-6894 ml (25-30 ml/kg) Nutritional Problem 2. Problem Problem Impaired nutrient utilization Etiology /t endocrine/renal dysfunction Signs/Symptoms: aeb Hx DMT2, labs (06/08): A1c 8.8, Glucose 237, BUN/Cr 47/1. 48, Urine Protein 2+, Urine Glucose 2+ 1. Problem Problem Poor PO intake Etiology r/t possible psychosis/ language barrier/poor appetite Signs/Symptoms: aeb meal/nutrition activity record. Malnutrition Related to Morbid Obesity Malnutrition related to morbid obesity No Intervention/Recommendation Comments 1. Continue CCHO, REGINA, Pureed diet as tolerated. 2. Continue antihyperglycemic medications for glucose control per MD order. 3. Add Glucerna TID (completed ). Expected Outcomes/Goals Expected Outcomes/Goals 1. PO intake to meet 75% of estimated nutritional needs. 2. Monitor PO intake, wt, nutrition related labs, and skin integrity. 3. F/U as moderate risk in 3-5 days, 06/12-06/14
--- NOTE | 2019-06-12 07:36 | Progress Notes ---
DATE: 06/12/[address] Gunter. SUBJECTIVE: The patient was seen and evaluated. The patient's chart reviewed. Today on [id number] evaluation, the patient continues to present incoherent comments, disorganized, minimally interactive. MENTAL STATUS EXAMINATION: Minimally interactive, disengaged, withdrawn. ASSESSMENT AND PLAN: A 79-year-old male with a history of dementia with behavior disturbances. Tolerating medication well without complications. We will continue with the current medication regimen. JOB# [id number]
[2019-06-12] MEDS: Aspirin 81mg Chewable Tab PO SCH (09:36)
[2019-06-12] MEDS: Multivitamin Tab PO SCH (09:37)
[2019-06-13] MEDS: INSULIN LISPRO SLIDING SCALE 100 UNITS/ML UNIT SUBQ SCH ×4 (06:44→22:47)
--- NOTE | 2019-06-13 07:41 | General Progress Note ---
Subjective - Review of Systems Service Date: 06/13/19 Subjective: Awake,alert, afebrile. Less agitated this morning. Blood sugars elevated last night. 400's VS T 98.7 P 51 R 19 BP 112/87 Objective - Physical Exam Vitals and I&O: Vital Signs Temp 98.2 F 06/13/19 06:07 Pulse 51 06/13/19 06:07 Resp 19 06/13/19 06:07 BP 112/87 06/13/19 06:07 Pulse Ox 92 06/13/19 06:07 Intake & Output 06/12/19 06/13/19 06/13/19 18:59 06:59 18:59 Intake Total 580 300 Output Total 1 Balance 580 299 Intake: Oral 460 300 Other 120 Output: Urine/Stool Mix 1 Other: # Voids 3 1 # Bowel Movements 0 0 Active Medications: Current Medications Acetaminophen/Hydrocodone Bitart ([place] 5mg/325mg) 1 tab PO Q6H PRN PRN Reason: moderate pain (Scale 4-7) Stop: 08/06/19 00:34 Amlodipine Besylate (Norvasc) 10 mg PO DAILY [facility] Stop: 08/06/19 08:59 Last Admin: 06/12/19 09:35 Dose: 10 mg Aspirin (Aspirin Chewable) 81 mg PO DAILY [facility] Stop: 08/06/19 08:59 Last Admin: 06/12/19 09:36 Dose: 81 mg Atorvastatin Calcium (Lipitor) 40 mg PO DAILY [facility]; Protocol Stop: 08/06/19 08:59 Last Admin: 06/12/19 09:36 Dose: 40 mg Bisacodyl (Dulcolax 5 Mg Ec Tab) 5 mg PO PRN PRN PRN Reason: constipation Stop: 08/06/19 00:17 Calcium Carbonate (Tums) 500 mg PO TID [facility] Stop: 08/06/19 08:59 Last Admin: 06/12/19 21:05 Dose: 500 mg Dextrose (Glutose 40%) 18.75 gm PO PRN PRN PRN Reason: BS Below 70 if tolerate po Stop: 08/06/19 07:51 Docusate Sodium (Colace) 250 mg PO DAILY [facility] Stop: 08/06/19 08:59 Last Admin: 06/12/19 09:37 Dose: 250 mg Glucagon (Glucagen) 1 mg IM PRN PRN PRN Reason: BS Below 70 if not tolerate po Stop: 08/06/19 07:51 Insulin Human Lispro (Humalog Insulin Sliding Scale) 0 units SUBQ ACHS [facility]; Protocol Stop: 08/06/19 11:29 Last Admin: 06/13/19 06:44 Dose: 4 units Lactulose (Cephulac) 10 gm PO BID PRN PRN Reason: constipation Stop: 08/06/19 08:59 Lorazepam (Ativan) 0.5 mg PO Q4HR PRN; Protocol PRN Reason: Anxiety Stop: 07/06/19 23:10 Last Admin: 06/09/19 16:18 Dose: 0.5 mg Magnesium Hydroxide (Milk Of Magnesia) 30 ml PO HS PRN PRN Reason: Constipation Stop: 08/06/19 00:36 Metformin HCl (Glucophage) 500 mg PO DAILY [facility] Stop: 08/12/19 08:59 Multivitamins/Vitamin C (Theragran) 1 tab PO DAILY [facility] Stop: 08/06/19 08:59 Last Admin: 06/12/19 09:37 Dose: 1 tab Psyllium Hydrophilic Mucilloid (Metamucil) 1 pkt PO DAILY [facility] Stop: 08/06/19 08:59 Last Admin: 06/12/19 09:38 Dose: 1 pkt Quetiapine Fumarate 100 mg/ (Quetiapine Fumarate 50 mg) 150 mg PO HS [facility] Stop: 08/07/19 20:59 Last Admin: 06/12/19 21:06 Dose: 150 mg Quetiapine Fumarate (Seroquel) 25 mg PO BID [facility]; Protocol Stop: 08/08/19 08:59 Last Admin: 06/12/19 16:57 Dose: 25 mg Sodium Phosphate (Fleet Enema) 135 ml RC PRN PRN PRN Reason: Constipation Stop: 08/06/19 00:33 Venlafaxine HCl (Effexor Xr) 75 mg PO DAILY [facility]; Protocol Stop: 08/09/19 08:59 Last Admin: 06/12/19 09:38 Dose: 75 mg Zolpidem Tartrate (Ambien) 5 mg PO HS PRN PRN Reason: Insomnia Stop: 08/06/19 01:05 Last Admin: 06/12/19 21:05 Dose: 5 mg General: Alert, No acute distress HEENT: Atraumatic, PERRLA, EOMI Neck: Supple, JVD Cardiovascular: Regular rate Lungs: Clear to auscultation Abdomen: Bowel sounds Extremities: no Clubbing, no Cyanosis, no Edema Neurological: Normal gait Skin: no Rash Assessment/Plan - Assessment Assessment: elevated blood sugars last night Psychosis dementia Major depressive disorder Hypertension controlled Hyperlipidemia Diabetes Mellitus type 2 not well controlled Anemia of chronic disease CVA - Plan Plan: add clonidine 0.1mg PO TID PRN SBP above 160 labwork pending see orders continue accuchecks SSI start januvia 100mg Nutritional Asmnt/Malnutr-PDOC - Dietary Evaluation Malnutrition Findings (Please click <Entered> for more info): Nutritional Asmnt/Malnutrition Start: 06/09/19 14: 45 Text: Status: Active Freq: Protocol: Document 06/09/19 14:45 BRIA (Rec: 06/09/19 14:51 [email or web address] [id number]) Nutritional Asmnt/Malnutrition Patient General Information Nutritional Screening Moderate Risk Diagnosis Psychosis Pertinent Medical Hx/Surgical Hx Dementia, Major Depressive Disorder, HTN, Hyperlipidemia, DMT2, Anemia of Chronic Disease, CVA Subjective Information Pt is a 79-year-old male admitted on 06/06 d/t acute psychosis. Pt ate (06/08) 75% breakfast, 25% lunch, 0% dinner. Pt only speaks Cantonese and translation phones are currently unavailable, have been ordered . Nurse Marcelo stated pt does have poor PO intake, food and beverages. Provided a Glucerna at lunch time, pt drank a little of it. Breezy REYES stated pt slept through breakfast as he was given a shot yesterday and he ate about 30% of his lunch today. When I visited pt in late afternoon I went in with the nurse to offer a snack and the pt was combative, kicking and punching, threw pudding on the ground. Will continue to monitor pt PO intake. Adding Glucerna TID to Diet Rx to offer additional kcals and protein. Pt is on INS-SS, pt has noted refusal of Insulin regimen 06/08 x3. Anthropometrics HT: 52 WT: 122 LB (55.45 kg) BMI: 22.31 (Normal) GI/ Skin Integrity GI: WNL, Flat, Non-tender BM: 06/09 x1 I/O: 840/Not Noted Skin: WNL, Intact Mau: 18 Diet Order: CCHO, REGINA, Pureed Estimated Energy Needs: ( Geriatric, CBW) 5333-4517 kcals (25-30 kcals/ kg) 55-65g Pro (1.0-1.2 g/kg) 9847-3692 ml (25-30 ml/kg) Current Diet Order/ Nutrition Support CCHO, REGINA, Pureed Pertinent Medications Lipitor, Dulcolax (PRN), Tums, Glutose 40% (PRN), Glucagen ( PRN), INS-SS, Cephulac, Colace , MOM (PRN), Theragran, Metamucil, Fleet Enema (PRN) Pertinent Labs 06/08: A1c 8.8, Hgb/Hct 10.9/32 .5, Glucose 237, BUN/Cr 47/1. 48, TAGs 201, Urine Protein 2+ , Urine Glucose 2+ POC Glucose (06/07-06/09): 174, 307, 78, 200, 186 Nutritional Hx/Data Height 1.57 m Height (Calculated Centimeters) 157.5 Current Weight (lbs) 55.338 kg Weight (Calculated Kilograms) 55.3 Weight (Calculated Grams) 12282.3 [place] Body Weight 118 LB (53.64 kg) % [place] Body Weight 103 Body Mass Index (BMI) 22.3 Weight Status Approriate GI Symptoms Last BM 06/09 x1 Skin Integrity/Comment: Skin: WNL, Intact Mau: 18 Current %PO Poor (25-49%) Estimated Nutritional Goals BEE in Kcals: Using Current wt Calories/Kcals/Kg 25-30 Kcals Calculated 8712-2572 Protein: Using Current wt Protein g/k.0-1.2 Protein Calculated 55-65 Fluid: ml 4273-4909 ml (25-30 ml/kg) Nutritional Problem 2. Problem Problem Impaired nutrient utilization Etiology /t endocrine/renal dysfunction Signs/Symptoms: aeb Hx DMT2, labs (06/08): A1c 8.8, Glucose 237, BUN/Cr 47/1. 48, Urine Protein 2+, Urine Glucose 2+ 1. Problem Problem Poor PO intake Etiology r/t possible psychosis/ language barrier/poor appetite Signs/Symptoms: aeb meal/nutrition activity record. Malnutrition Related to Morbid Obesity Malnutrition related to morbid obesity No Intervention/Recommendation Comments 1. Continue CCHO, REGINA, Pureed diet as tolerated. 2. Continue antihyperglycemic medications for glucose control per MD order. 3. Add Glucerna TID (completed ). Expected Outcomes/Goals Expected Outcomes/Goals 1. PO intake to meet 75% of estimated nutritional needs. 2. Monitor PO intake, wt, nutrition related labs, and skin integrity. 3. F/U as moderate risk in 3-5 days, 06/12-06/14
[2019-06-13] MEDS: Multivitamin Tab PO SCH (08:58)
[2019-06-13] MEDS: Aspirin 81mg Chewable Tab PO SCH (08:59)
--- NOTE | 2019-06-14 00:01 | Progress Notes ---
DATE: Case was discussed with staff of the patient, reviewed records. The patient continues to be confused, unpredictable, impulsive, needing redirection. Continues to have agigtated behavior. The patient with a history of CVA, diabetes type 2, hypertension, hyperlipidemia. Continues to be unpredictable, impulsive, needing redirection. Unable to make safe plan for self-care. No side effects with the medication, no sedation, no nausea, no extrapyramidal symptoms. We will continue outpatient group therapy, milieu therapy, and adjust medication as needed. JOB# [id number] [email or web address]
[2019-06-14] MEDS: INSULIN LISPRO SLIDING SCALE 100 UNITS/ML UNIT SUBQ SCH ×4 (06:34→21:00)
--- NOTE | 2019-06-14 08:13 | General Progress Note ---
Subjective - Review of Systems Service Date: 06/14/19 Subjective: Awake,alert, afebrile. Less agitated this morning. Blood sugars elevated last night. 200's better with the medication VS T 97.2 P 104 R 20 BP 104/56 Objective - Results Recent Labs: Laboratory Last Values POC Glucose 230 MG/DL (70 - 105) H 06/14/19 05:54 - Physical Exam Vitals and I&O: Vital Signs Temp 97.2 F 06/13/19 20:00 Pulse 104 06/13/19 20:00 Resp 20 06/13/19 20:00 BP 104/56 06/13/19 20:00 Pulse Ox 94 06/13/19 20:00 Intake & Output 06/13/19 06/14/19 06/14/19 18:59 06:59 18:59 Intake Total 580 240 Balance 580 240 Intake: Oral 460 240 Other 120 Other: # Voids 3 2 # Bowel Movements 1 Active Medications: Current Medications Acetaminophen/Hydrocodone Bitart ([place] 5mg/325mg) 1 tab PO Q6H PRN PRN Reason: moderate pain (Scale 4-7) Stop: 08/06/19 00:34 Amlodipine Besylate (Norvasc) 10 mg PO DAILY [facility] Stop: 08/06/19 08:59 Last Admin: 06/13/19 08:58 Dose: 10 mg Aspirin (Aspirin Chewable) 81 mg PO DAILY [facility] Stop: 08/06/19 08:59 Last Admin: 06/13/19 08:59 Dose: 81 mg Atorvastatin Calcium (Lipitor) 40 mg PO DAILY [facility]; Protocol Stop: 08/06/19 08:59 Last Admin: 06/13/19 08:57 Dose: 40 mg Bisacodyl (Dulcolax 5 Mg Ec Tab) 5 mg PO PRN PRN PRN Reason: constipation Stop: 08/06/19 00:17 Calcium Carbonate (Tums) 500 mg PO TID [facility] Stop: 08/06/19 08:59 Last Admin: 06/13/19 21:56 Dose: 500 mg Dextrose (Glutose 40%) 18.75 gm PO PRN PRN PRN Reason: BS Below 70 if tolerate po Stop: 08/06/19 07:51 Docusate Sodium (Colace) 250 mg PO DAILY [facility] Stop: 08/06/19 08:59 Last Admin: 06/13/19 08:57 Dose: 250 mg Glucagon (Glucagen) 1 mg IM PRN PRN PRN Reason: BS Below 70 if not tolerate po Stop: 08/06/19 07:51 Insulin Human Lispro (Humalog Insulin Sliding Scale) 0 units SUBQ ACHS [facility]; Protocol Stop: 08/06/19 11:29 Last Admin: 06/14/19 06:34 Dose: 4 units Lactulose (Cephulac) 10 gm PO BID PRN PRN Reason: constipation Stop: 08/06/19 08:59 Lorazepam (Ativan) 0.5 mg PO Q4HR PRN; Protocol PRN Reason: Anxiety Stop: 07/06/19 23:10 Last Admin: 06/09/19 16:18 Dose: 0.5 mg Magnesium Hydroxide (Milk Of Magnesia) 30 ml PO HS PRN PRN Reason: Constipation Stop: 08/06/19 00:36 Multivitamins/Vitamin C (Theragran) 1 tab PO DAILY [facility] Stop: 08/06/19 08:59 Last Admin: 06/13/19 08:58 Dose: 1 tab Psyllium Hydrophilic Mucilloid (Metamucil) 1 pkt PO DAILY [facility] Stop: 08/06/19 08:59 Last Admin: 06/13/19 17:11 Dose: 1 pkt Quetiapine Fumarate 100 mg/ (Quetiapine Fumarate 50 mg) 150 mg PO HS [facility] Stop: 08/07/19 20:59 Last Admin: 06/13/19 20:28 Dose: 150 mg Quetiapine Fumarate (Seroquel) 25 mg PO BID [facility]; Protocol Stop: 08/08/19 08:59 Last Admin: 06/13/19 17:11 Dose: 25 mg Sitagliptin Phosphate (Januvia) 100 mg PO DAILY [facility] Stop: 08/12/19 08:59 Last Admin: 06/13/19 08:56 Dose: 100 mg Sodium Phosphate (Fleet Enema) 135 ml RC PRN PRN PRN Reason: Constipation Stop: 08/06/19 00:33 Venlafaxine HCl (Effexor Xr) 75 mg PO DAILY [facility]; Protocol Stop: 08/09/19 08:59 Last Admin: 06/13/19 08:58 Dose: 75 mg Zolpidem Tartrate (Ambien) 5 mg PO HS PRN PRN Reason: Insomnia Stop: 08/06/19 01:05 Last Admin: 06/13/19 20:29 Dose: 5 mg General: Alert, No acute distress HEENT: Atraumatic, PERRLA, EOMI Neck: Supple, JVD Cardiovascular: Regular rate Lungs: Clear to auscultation Abdomen: Bowel sounds Extremities: no Clubbing, no Cyanosis, no Edema Neurological: Normal gait Skin: no Rash Assessment/Plan - Assessment Assessment: elevated blood sugars last night Psychosis dementia Major depressive disorder Hypertension controlled Hyperlipidemia Diabetes Mellitus type 2 better on Januvia Anemia of chronic disease CVA - Plan Plan: add clonidine 0.1mg PO TID PRN SBP above 160 labwork pending see orders continue accuchecks SSI continue januvia 100mg Nutritional Asmnt/Malnutr-PDOC - Dietary Evaluation Malnutrition Findings (Please click <Entered> for more info): Nutritional Asmnt/Malnutrition Start: 06/09/19 14: 45 Text: Status: Active Freq: Protocol: Document 06/09/19 14:45 BRIA (Rec: 06/09/19 14:51 [email or web address] [id number]) Nutritional Asmnt/Malnutrition Patient General Information Nutritional Screening Moderate Risk Diagnosis Psychosis Pertinent Medical Hx/Surgical Hx Dementia, Major Depressive Disorder, HTN, Hyperlipidemia, DMT2, Anemia of Chronic Disease, CVA Subjective Information Pt is a 79-year-old male admitted on 06/06 d/t acute psychosis. Pt ate (06/08) 75% breakfast, 25% lunch, 0% dinner. Pt only speaks Cantonese and translation phones are currently unavailable, have been ordered . Nurse Marcelo stated pt does have poor PO intake, food and beverages. Provided a Glucerna at lunch time, pt drank a little of it. Breezy REYES stated pt slept through breakfast as he was given a shot yesterday and he ate about 30% of his lunch today. When I visited pt in late afternoon I went in with the nurse to offer a snack and the pt was combative, kicking and punching, threw pudding on the ground. Will continue to monitor pt PO intake. Adding Glucerna TID to Diet Rx to offer additional kcals and protein. Pt is on INS-SS, pt has noted refusal of Insulin regimen 06/08 x3. Anthropometrics HT: 52 WT: 122 LB (55.45 kg) BMI: 22.31 (Normal) GI/ Skin Integrity GI: WNL, Flat, Non-tender BM: 06/09 x1 I/O: 840/Not Noted Skin: WNL, Intact Mau: 18 Diet Order: CCHO, REGINA, Pureed Estimated Energy Needs: ( Geriatric, CBW) 1021-3011 kcals (25-30 kcals/ kg) 55-65g Pro (1.0-1.2 g/kg) 4349-2222 ml (25-30 ml/kg) Current Diet Order/ Nutrition Support CCHO, REGINA, Pureed Pertinent Medications Lipitor, Dulcolax (PRN), Tums, Glutose 40% (PRN), Glucagen ( PRN), INS-SS, Cephulac, Colace , MOM (PRN), Theragran, Metamucil, Fleet Enema (PRN) Pertinent Labs 06/08: A1c 8.8, Hgb/Hct 10.9/32 .5, Glucose 237, BUN/Cr 47/1. 48, TAGs 201, Urine Protein 2+ , Urine Glucose 2+ POC Glucose (06/07-06/09): 174, 307, 78, 200, 186 Nutritional Hx/Data Height 1.57 m Height (Calculated Centimeters) 157.5 Current Weight (lbs) 55.338 kg Weight (Calculated Kilograms) 55.3 Weight (Calculated Grams) 66183.3 [place] Body Weight 118 LB (53.64 kg) % [place] Body Weight 103 Body Mass Index (BMI) 22.3 Weight Status Approriate GI Symptoms Last BM 06/09 x1 Skin Integrity/Comment: Skin: WNL, Intact Amu: 18 Current %PO Poor (25-49%) Estimated Nutritional Goals BEE in Kcals: Using Current wt Calories/Kcals/Kg 25-30 Kcals Calculated 8211-5267 Protein: Using Current wt Protein g/k.0-1.2 Protein Calculated 55-65 Fluid: ml 4074-9573 ml (25-30 ml/kg) Nutritional Problem 2. Problem Problem Impaired nutrient utilization Etiology /t endocrine/renal dysfunction Signs/Symptoms: aeb Hx DMT2, labs (06/08): A1c 8.8, Glucose 237, BUN/Cr 47/1. 48, Urine Protein 2+, Urine Glucose 2+ 1. Problem Problem Poor PO intake Etiology r/t possible psychosis/ language barrier/poor appetite Signs/Symptoms: aeb meal/nutrition activity record. Malnutrition Related to Morbid Obesity Malnutrition related to morbid obesity No Intervention/Recommendation Comments 1. Continue CCHO, REGINA, Pureed diet as tolerated. 2. Continue antihyperglycemic medications for glucose control per MD order. 3. Add Glucerna TID (completed ). Expected Outcomes/Goals Expected Outcomes/Goals 1. PO intake to meet 75% of estimated nutritional needs. 2. Monitor PO intake, wt, nutrition related labs, and skin integrity. 3. F/U as moderate risk in 3-5 days, 06/12-06/14
[2019-06-14] MEDS: Aspirin 81mg Chewable Tab PO SCH (09:36)
[2019-06-14] MEDS: Multivitamin Tab PO SCH (09:36)
--- NOTE | 2019-06-14 21:31 | Progress Notes ---
DATE: Case was discussed with staff of the patient, reviewed records. The patient continues to be unpredictable, impulsive, confused, unable to make safe plan for self-care, easily agitated, continues to have poor insight with multiple medical conditions. Unable to make safe plan for self-care. No side effects of the medication, no sedation, no nausea, no extrapyramidal symptoms. We will continue outpatient group therapy, milieu therapy, adjust medication as needed. [facility]# [id number]
[2019-06-15] MEDS: INSULIN LISPRO SLIDING SCALE 100 UNITS/ML UNIT SUBQ SCH ×4 (06:30→20:42)
--- NOTE | 2019-06-15 06:52 | Progress Notes ---
DATE: 06/15/2019 SUBJECTIVE: Chart was reviewed and the patient interviewed. Also discussed the patient's condition with the staff and reviewed records and labs. The patient remains confused and is still easily agitated. The patient also is having labile affect. Also, according to the charge nurse that speaks Cantonese and she helped with translation with staff. The patient is saying that he is depressed and told her that "just let me ." He constantly needs redirections. ASSESSMENT: The patient is still depressed and needs lots of redirections. TREATMENT PLAN: Continue monitoring his behavior and his condition closely. Also, we will increase Effexor to 150 mg every day and continue to follow up closely. JOB# [id number]
--- NOTE | 2019-06-15 08:11 | General Progress Note ---
Subjective - Review of Systems Service Date: 06/15/19 Subjective: Awake,alert, afebrile. Less agitated this morning. Blood sugars elevated last night. 200's better with the medication VS T 97.5 P 103 R 19 BP 144/79 Objective - Results Recent Labs: Laboratory Last Values POC Glucose 178 MG/DL (70 - 105) H 06/15/19 06:19 - Physical Exam Vitals and I&O: Vital Signs Temp 97.5 F 06/15/19 06:35 Pulse 103 06/15/19 06:35 Resp 19 06/15/19 06:35 BP 144/79 06/15/19 06:35 Pulse Ox 97 06/15/19 06:35 Intake & Output 06/14/19 06/15/19 06/15/19 18:59 06:59 18:59 Intake Total 240 Balance 240 Intake: Oral 240 Other: # Voids 4 2 # Bowel Movements 0 0 Active Medications: Current Medications Acetaminophen/Hydrocodone Bitart ([place] 5mg/325mg) 1 tab PO Q6H PRN PRN Reason: moderate pain (Scale 4-7) Stop: 08/06/19 00:34 Amlodipine Besylate (Norvasc) 10 mg PO DAILY [facility] Stop: 08/06/19 08:59 Last Admin: 06/14/19 09:34 Dose: 10 mg Aspirin (Aspirin Chewable) 81 mg PO DAILY [facility] Stop: 08/06/19 08:59 Last Admin: 06/14/19 09:36 Dose: 81 mg Atorvastatin Calcium (Lipitor) 40 mg PO DAILY [facility]; Protocol Stop: 08/06/19 08:59 Last Admin: 06/14/19 09:36 Dose: 40 mg Bisacodyl (Dulcolax 5 Mg Ec Tab) 5 mg PO PRN PRN PRN Reason: constipation Stop: 08/06/19 00:17 Calcium Carbonate (Tums) 500 mg PO TID [facility] Stop: 08/06/19 08:59 Last Admin: 06/14/19 20:57 Dose: 500 mg Dextrose (Glutose 40%) 18.75 gm PO PRN PRN PRN Reason: BS Below 70 if tolerate po Stop: 08/06/19 07:51 Docusate Sodium (Colace) 250 mg PO DAILY [facility] Stop: 08/06/19 08:59 Last Admin: 06/14/19 09:36 Dose: 250 mg Glucagon (Glucagen) 1 mg IM PRN PRN PRN Reason: BS Below 70 if not tolerate po Stop: 08/06/19 07:51 Insulin Human Lispro (Humalog Insulin Sliding Scale) 0 units SUBQ ACHS [facility]; Protocol Stop: 08/06/19 11:29 Last Admin: 06/15/19 06:30 Dose: 2 units Lactulose (Cephulac) 10 gm PO BID PRN PRN Reason: constipation Stop: 08/06/19 08:59 Lorazepam (Ativan) 0.5 mg PO Q4HR PRN; Protocol PRN Reason: Anxiety Stop: 07/06/19 23:10 Last Admin: 06/09/19 16:18 Dose: 0.5 mg Magnesium Hydroxide (Milk Of Magnesia) 30 ml PO HS PRN PRN Reason: Constipation Stop: 08/06/19 00:36 Multivitamins/Vitamin C (Theragran) 1 tab PO DAILY [facility] Stop: 08/06/19 08:59 Last Admin: 06/14/19 09:36 Dose: 1 tab Psyllium Hydrophilic Mucilloid (Metamucil) 1 pkt PO DAILY [facility] Stop: 08/06/19 08:59 Last Admin: 06/14/19 09:36 Dose: 1 pkt Quetiapine Fumarate 100 mg/ (Quetiapine Fumarate 50 mg) 150 mg PO HS [facility] Stop: 08/07/19 20:59 Last Admin: 06/14/19 20:59 Dose: 150 mg Quetiapine Fumarate (Seroquel) 25 mg PO BID [facility]; Protocol Stop: 08/08/19 08:59 Last Admin: 06/14/19 16:08 Dose: 25 mg Sitagliptin Phosphate (Januvia) 100 mg PO DAILY [facility] Stop: 08/12/19 08:59 Last Admin: 06/14/19 09:36 Dose: 100 mg Sodium Phosphate (Fleet Enema) 135 ml RC PRN PRN PRN Reason: Constipation Stop: 08/06/19 00:33 Venlafaxine HCl (Effexor Xr) 150 mg PO DAILY [facility]; Protocol Stop: 08/14/19 08:59 Zolpidem Tartrate (Ambien) 5 mg PO HS PRN PRN Reason: Insomnia Stop: 08/06/19 01:05 Last Admin: 06/13/19 20:29 Dose: 5 mg General: Alert, No acute distress HEENT: Atraumatic, PERRLA, EOMI Neck: Supple, JVD Cardiovascular: Regular rate Lungs: Clear to auscultation Abdomen: Bowel sounds Extremities: no Clubbing, no Cyanosis, no Edema Neurological: Normal gait Skin: no Rash Assessment/Plan - Assessment Assessment: elevated blood sugars last night will add clonidine PRN Psychosis dementia Major depressive disorder Hypertension controlled Hyperlipidemia Diabetes Mellitus type 2 better on Januvia 100-mg PO daily Anemia of chronic disease CVA - Plan Plan: add clonidine 0.1mg PO TID PRN SBP above 160 labwork pending see orders continue accuchecks SSI continue januvia 100mg add metformin 500mg Po daily Nutritional Asmnt/Malnutr-PDOC - Dietary Evaluation Malnutrition Findings (Please click <Entered> for more info): Nutritional Asmnt/Malnutrition Start: 06/09/19 14: 45 Text: Status: Active Freq: Protocol: Document 06/09/19 14:45 BRIA (Rec: 06/09/19 14:51 [email or web address] [id number]) Nutritional Asmnt/Malnutrition Patient General Information Nutritional Screening Moderate Risk Diagnosis Psychosis Pertinent Medical Hx/Surgical Hx Dementia, Major Depressive Disorder, HTN, Hyperlipidemia, DMT2, Anemia of Chronic Disease, CVA Subjective Information Pt is a 79-year-old male admitted on 06/06 d/t acute psychosis. Pt ate (06/08) 75% breakfast, 25% lunch, 0% dinner. Pt only speaks Cantonese and translation phones are currently unavailable, have been ordered . Nurse Marcelo stated pt does have poor PO intake, food and beverages. Provided a Glucerna at lunch time, pt drank a little of it. Breezy REYES stated pt slept through breakfast as he was given a shot yesterday and he ate about 30% of his lunch today. When I visited pt in late afternoon I went in with the nurse to offer a snack and the pt was combative, kicking and punching, threw pudding on the ground. Will continue to monitor pt PO intake. Adding Glucerna TID to Diet Rx to offer additional kcals and protein. Pt is on INS-SS, pt has noted refusal of Insulin regimen 06/08 x3. Anthropometrics HT: 52 WT: 122 LB (55.45 kg) BMI: 22.31 (Normal) GI/ Skin Integrity GI: WNL, Flat, Non-tender BM: 06/09 x1 I/O: 840/Not Noted Skin: WNL, Intact Mau: 18 Diet Order: CCHO, REGINA, Pureed Estimated Energy Needs: ( Geriatric, CBW) 0740-6023 kcals (25-30 kcals/ kg) 55-65g Pro (1.0-1.2 g/kg) 3681-6458 ml (25-30 ml/kg) Current Diet Order/ Nutrition Support CCHO, REGINA, Pureed Pertinent Medications Lipitor, Dulcolax (PRN), Tums, Glutose 40% (PRN), Glucagen ( PRN), INS-SS, Cephulac, Colace , MOM (PRN), Theragran, Metamucil, Fleet Enema (PRN) Pertinent Labs 06/08: A1c 8.8, Hgb/Hct 10.9/32 .5, Glucose 237, BUN/Cr 47/1. 48, TAGs 201, Urine Protein 2+ , Urine Glucose 2+ POC Glucose (06/07-06/09): 174, 307, 78, 200, 186 Nutritional Hx/Data Height 1.57 m Height (Calculated Centimeters) 157.5 Current Weight (lbs) 55.338 kg Weight (Calculated Kilograms) 55.3 Weight (Calculated Grams) 47586.3 [place] Body Weight 118 LB (53.64 kg) % [place] Body Weight 103 Body Mass Index (BMI) 22.3 Weight Status Approriate GI Symptoms Last BM 06/09 x1 Skin Integrity/Comment: Skin: WNL, Intact Mau: 18 Current %PO Poor (25-49%) Estimated Nutritional Goals BEE in Kcals: Using Current wt Calories/Kcals/Kg 25-30 Kcals Calculated 2524-6504 Protein: Using Current wt Protein g/k.0-1.2 Protein Calculated 55-65 Fluid: ml 8998-2822 ml (25-30 ml/kg) Nutritional Problem 2. Problem Problem Impaired nutrient utilization Etiology /t endocrine/renal dysfunction Signs/Symptoms: aeb Hx DMT2, labs (06/08): A1c 8.8, Glucose 237, BUN/Cr 47/1. 48, Urine Protein 2+, Urine Glucose 2+ 1. Problem Problem Poor PO intake Etiology r/t possible psychosis/ language barrier/poor appetite Signs/Symptoms: aeb meal/nutrition activity record. Malnutrition Related to Morbid Obesity Malnutrition related to morbid obesity No Intervention/Recommendation Comments 1. Continue CCHO, REGINA, Pureed diet as tolerated. 2. Continue antihyperglycemic medications for glucose control per MD order. 3. Add Glucerna TID (completed ). Expected Outcomes/Goals Expected Outcomes/Goals 1. PO intake to meet 75% of estimated nutritional needs. 2. Monitor PO intake, wt, nutrition related labs, and skin integrity. 3. F/U as moderate risk in 3-5 days, 06/12-06/14
[2019-06-15] MEDS: Multivitamin Tab PO SCH (09:00)
[2019-06-15] MEDS: Aspirin 81mg Chewable Tab PO SCH (10:08)
[2019-06-16] MEDS: INSULIN LISPRO SLIDING SCALE 100 UNITS/ML UNIT SUBQ SCH ×4 (06:44→20:39)
--- NOTE | 2019-06-16 08:01 | General Progress Note ---
Subjective - Review of Systems Service Date: 06/16/19 Subjective: Awake,alert, afebrile. Less agitated this morning. Blood sugars improving. VS T 98.0 P 66 R 18 BP 99/50 Objective - Results Recent Labs: Laboratory Last Values POC Glucose 156 MG/DL (70 - 105) H 06/16/19 06:27 - Physical Exam Vitals and I&O: Vital Signs Temp 98.0 F 06/16/19 06:37 Pulse 99 06/16/19 06:37 Resp 18 06/16/19 06:37 BP 98/50 06/16/19 06:37 Pulse Ox 96 06/16/19 06:37 Intake & Output 06/15/19 06/16/19 06/16/19 18:59 06:59 18:59 Intake Total 700 240 Balance 700 240 Intake: Oral 700 240 Other: # Voids 3 2 # Bowel Movements 0 0 Stool Characteristics Soft Active Medications: Current Medications Acetaminophen/Hydrocodone Bitart ([place] 5mg/325mg) 1 tab PO Q6H PRN PRN Reason: moderate pain (Scale 4-7) Stop: 08/06/19 00:34 Amlodipine Besylate (Norvasc) 10 mg PO DAILY [facility] Stop: 08/06/19 08:59 Last Admin: 06/15/19 09:00 Dose: 10 mg Aspirin (Aspirin Chewable) 81 mg PO DAILY [facility] Stop: 08/06/19 08:59 Last Admin: 06/15/19 10:08 Dose: 81 mg Atorvastatin Calcium (Lipitor) 40 mg PO DAILY [facility]; Protocol Stop: 08/06/19 08:59 Last Admin: 06/15/19 09:00 Dose: 40 mg Bisacodyl (Dulcolax 5 Mg Ec Tab) 5 mg PO PRN PRN PRN Reason: constipation Stop: 08/06/19 00:17 Calcium Carbonate (Tums) 500 mg PO TID [facility] Stop: 08/06/19 08:59 Last Admin: 06/15/19 20:42 Dose: 500 mg Dextrose (Glutose 40%) 18.75 gm PO PRN PRN PRN Reason: BS Below 70 if tolerate po Stop: 08/06/19 07:51 Docusate Sodium (Colace) 250 mg PO DAILY [facility] Stop: 08/06/19 08:59 Last Admin: 06/15/19 10:13 Dose: 250 mg Glucagon (Glucagen) 1 mg IM PRN PRN PRN Reason: BS Below 70 if not tolerate po Stop: 08/06/19 07:51 Insulin Human Lispro (Humalog Insulin Sliding Scale) 0 units SUBQ ACHS [facility]; Protocol Stop: 08/06/19 11:29 Last Admin: 06/16/19 06:44 Dose: 2 units Lactulose (Cephulac) 10 gm PO BID PRN PRN Reason: constipation Stop: 08/06/19 08:59 Lorazepam (Ativan) 0.5 mg PO Q4HR PRN; Protocol PRN Reason: Anxiety Stop: 07/06/19 23:10 Last Admin: 06/09/19 16:18 Dose: 0.5 mg Magnesium Hydroxide (Milk Of Magnesia) 30 ml PO HS PRN PRN Reason: Constipation Stop: 08/06/19 00:36 Metformin HCl (Glucophage) 500 mg PO DAILY [facility] Stop: 08/14/19 08:59 Last Admin: 06/15/19 09:00 Dose: 500 mg Multivitamins/Vitamin C (Theragran) 1 tab PO DAILY [facility] Stop: 08/06/19 08:59 Last Admin: 06/15/19 09:00 Dose: 1 tab Psyllium Hydrophilic Mucilloid (Metamucil) 1 pkt PO DAILY [facility] Stop: 08/06/19 08:59 Last Admin: 06/15/19 10:15 Dose: 1 pkt Quetiapine Fumarate 100 mg/ (Quetiapine Fumarate 50 mg) 150 mg PO HS [facility] Stop: 08/07/19 20:59 Last Admin: 06/15/19 20:43 Dose: 150 mg Quetiapine Fumarate (Seroquel) 25 mg PO BID [facility]; Protocol Stop: 08/08/19 08:59 Last Admin: 06/15/19 09:00 Dose: 25 mg Sitagliptin Phosphate (Januvia) 100 mg PO DAILY [facility] Stop: 08/12/19 08:59 Last Admin: 06/15/19 09:00 Dose: 100 mg Sodium Phosphate (Fleet Enema) 135 ml RC PRN PRN PRN Reason: Constipation Stop: 08/06/19 00:33 Venlafaxine HCl (Effexor Xr) 150 mg PO DAILY [facility]; Protocol Stop: 08/14/19 08:59 Last Admin: 06/15/19 09:00 Dose: 150 mg Zolpidem Tartrate (Ambien) 5 mg PO HS PRN PRN Reason: Insomnia Stop: 08/06/19 01:05 Last Admin: 06/13/19 20:29 Dose: 5 mg General: Alert, No acute distress HEENT: Atraumatic, PERRLA, EOMI Neck: Supple, JVD Cardiovascular: Regular rate Lungs: Clear to auscultation Abdomen: Bowel sounds Extremities: no Clubbing, no Cyanosis, no Edema Neurological: Normal gait Skin: no Rash Assessment/Plan - Assessment Assessment: Psychosis dementia Major depressive disorder Hypertension controlled Hyperlipidemia Diabetes Mellitus type 2 improved Anemia of chronic disease CVA - Plan Plan: add clonidine 0.1mg PO TID PRN SBP above 160 labwork pending see orders continue accuchecks SSI continue januvia 100mg add metformin 500mg Po daily Nutritional Asmnt/Malnutr-PDOC - Dietary Evaluation Malnutrition Findings (Please click <Entered> for more info): Nutritional Asmnt/Malnutrition Start: 06/09/19 14: 45 Text: Status: Active Freq: Protocol: Document 06/09/19 14:45 BRIA (Rec: 06/09/19 14:51 [email or web address] [id number]) Nutritional Asmnt/Malnutrition Patient General Information Nutritional Screening Moderate Risk Diagnosis Psychosis Pertinent Medical Hx/Surgical Hx Dementia, Major Depressive Disorder, HTN, Hyperlipidemia, DMT2, Anemia of Chronic Disease, CVA Subjective Information Pt is a 79-year-old male admitted on 06/06 d/t acute psychosis. Pt ate (06/08) 75% breakfast, 25% lunch, 0% dinner. Pt only speaks Cantonese and translation phones are currently unavailable, have been ordered . Nurse Marcelo stated pt does have poor PO intake, food and beverages. Provided a Glucerna at lunch time, pt drank a little of it. Breezy REYES stated pt slept through breakfast as he was given a shot yesterday and he ate about 30% of his lunch today. When I visited pt in late afternoon I went in with the nurse to offer a snack and the pt was combative, kicking and punching, threw pudding on the ground. Will continue to monitor pt PO intake. Adding Glucerna TID to Diet Rx to offer additional kcals and protein. Pt is on INS-SS, pt has noted refusal of Insulin regimen 06/08 x3. Anthropometrics HT: 52 WT: 122 LB (55.45 kg) BMI: 22.31 (Normal) GI/ Skin Integrity GI: WNL, Flat, Non-tender BM: 06/09 x1 I/O: 840/Not Noted Skin: WNL, Intact Mau: 18 Diet Order: CCHO, REGINA, Pureed Estimated Energy Needs: ( Geriatric, CBW) 5648-7697 kcals (25-30 kcals/ kg) 55-65g Pro (1.0-1.2 g/kg) 4636-6123 ml (25-30 ml/kg) Current Diet Order/ Nutrition Support CCHO, REGINA, Pureed Pertinent Medications Lipitor, Dulcolax (PRN), Tums, Glutose 40% (PRN), Glucagen ( PRN), INS-SS, Cephulac, Colace , MOM (PRN), Theragran, Metamucil, Fleet Enema (PRN) Pertinent Labs 06/08: A1c 8.8, Hgb/Hct 10.9/32 .5, Glucose 237, BUN/Cr 47/1. 48, TAGs 201, Urine Protein 2+ , Urine Glucose 2+ POC Glucose (06/07-06/09): 174, 307, 78, 200, 186 Nutritional Hx/Data Height 1.57 m Height (Calculated Centimeters) 157.5 Current Weight (lbs) 55.338 kg Weight (Calculated Kilograms) 55.3 Weight (Calculated Grams) 36991.3 [place] Body Weight 118 LB (53.64 kg) % [place] Body Weight 103 Body Mass Index (BMI) 22.3 Weight Status Approriate GI Symptoms Last BM 06/09 x1 Skin Integrity/Comment: Skin: WNL, Intact Mau: 18 Current %PO Poor (25-49%) Estimated Nutritional Goals BEE in Kcals: Using Current wt Calories/Kcals/Kg 25-30 Kcals Calculated 5994-1444 Protein: Using Current wt Protein g/k.0-1.2 Protein Calculated 55-65 Fluid: ml 4222-5823 ml (25-30 ml/kg) Nutritional Problem 2. Problem Problem Impaired nutrient utilization Etiology /t endocrine/renal dysfunction Signs/Symptoms: aeb Hx DMT2, labs (06/08): A1c 8.8, Glucose 237, BUN/Cr 47/1. 48, Urine Protein 2+, Urine Glucose 2+ 1. Problem Problem Poor PO intake Etiology r/t possible psychosis/ language barrier/poor appetite Signs/Symptoms: aeb meal/nutrition activity record. Malnutrition Related to Morbid Obesity Malnutrition related to morbid obesity No Intervention/Recommendation Comments 1. Continue CCHO, REGINA, Pureed diet as tolerated. 2. Continue antihyperglycemic medications for glucose control per MD order. 3. Add Glucerna TID (completed ). Expected Outcomes/Goals Expected Outcomes/Goals 1. PO intake to meet 75% of estimated nutritional needs. 2. Monitor PO intake, wt, nutrition related labs, and skin integrity. 3. F/U as moderate risk in 3-5 days, 06/12-06/14
[2019-06-16] MEDS: Aspirin 81mg Chewable Tab PO SCH (08:35)
[2019-06-16] MEDS: Multivitamin Tab PO SCH (08:36)
[2019-06-16] MEDS ORDERED: Fleet Enema 135 mL RC PRN (11:45)
[2019-06-17] MEDS: INSULIN LISPRO SLIDING SCALE 100 UNITS/ML UNIT SUBQ SCH ×3 (06:35→16:55)
[2019-06-17] MEDS: Aspirin 81mg Chewable Tab PO SCH (08:25)
[2019-06-17] MEDS: Multivitamin Tab PO SCH (08:25)
== END 2019-06-17 18:15 | DRG 885 ==
LOC: GERO 22:58
PROVIDERS: ADMIT Psychiatry & Neurology Psychiatry; ATTEND Psychiatry & Neurology Psychiatry
DX: F29 Unspecified psychosis not due to a substance or known physiological condition (principal); F03.91 Unspecified dementia, unspecified severity, with behavioral disturbance; F32.9 Major depressive disorder, single episode, unspecified; I10 Essential (primary) hypertension; E78.5 Hyperlipidemia, unspecified; E11.9 Type 2 diabetes mellitus without complications; D63.8 Anemia in other chronic diseases classified elsewhere; F41.9 Anxiety disorder, unspecified; Z86.73 Personal history of transient ischemic attack (TIA), and cerebral infarction without residual deficits
CPT/HCPCS: 82948-90; 83036-90; J1200; J1630; J2060; Z7610